=== PATIENT | male | born 1965 | race Hispanic/Latino ===

== ENCOUNTER 2016-10-08 08:00 | Day surgery (SDC) | payer BC ==
[2016-10-08] MEDS ORDERED: Lactated Ringer's 500 ML IV ONE (08:39)
[2016-10-08 08:53] VITALS: TEMP 97
[2016-10-08] MEDS ORDERED: Midazolam 2 MG/2 ML VIAL ONE (09:34)
[2016-10-08] MEDS ORDERED: Propofol 10 mg/ml Inj (20 ML) ONE (09:34)
[2016-10-08 10:12] VITALS: BP 110/70; PULSE 60; RESP 18; O2SAT 99
== END 2016-10-08 11:00 | disposition home or self-care (01) ==
LOC: H.ENDO 08:00
PROVIDERS: ATTEND Internal Medicine Gastroenterology
DX: Z12.11 Encounter for screening for malignant neoplasm of colon (principal); E78.5 Hyperlipidemia, unspecified; K64.1 Second degree hemorrhoids
CPT/HCPCS: 45378; J2001; J2250; J2704; J7120